=== PATIENT | male | born 2000 | race Two or more races ===

== ENCOUNTER 2022-04-24 17:19 | Emergency (ER) | payer OTHER ==
[~2022-04-24] VITALS: Ht 162.6 cm; Wt 65.8 kg
[2022-04-24 17:29] VITALS: BP 148/82
[2022-04-24] MEDS ORDERED: TDAP [DIPH/PERTUSSIS/TET] 0.5 ML VIAL IM ONE ×2 (17:30→17:33)
--- NOTE | 2022-04-24 17:47 | NUR ---
[facility] UNIT #[id number] AT BEDSIDE
--- NOTE | 2022-04-24 19:13 | NUR ---
Patient discharged to home in stable condition. Written and verbal after care instructions given. Patient verbalizes understanding of instruction.
== END 2022-04-24 19:15 | disposition home or self-care (01) ==
LOC: ER 17:24
DX: S61.411A Laceration without foreign body of right hand, initial encounter (principal); Z60.2 Problems related to living alone; W22.8XXA Striking against or struck by other objects, initial encounter; Y93.89 Activity, other specified; Y92.89 Other specified places as the place of occurrence of the external cause; Y99.8 Other external cause status
CPT/HCPCS: 99283; 90471; 90715; 73130; A6403